=== PATIENT | female | born 1980 | race Caucasian/White ===

== ENCOUNTER 2016-09-26 15:46 | Inpatient (IN) | payer BC ==
[~2016-09-26] VITALS: Ht 162.6 cm; Wt 66.5 kg
[~2016-09-26 15:46] MED LIST: IBUP-1542 PO
[2016-09-26] MEDS ORDERED: ONDANSETRON (ODT) 4 MG TAB ODT STA (16:56)
[2016-09-26] MEDS ORDERED: morphine 10 MG INJ IM ONE (17:00)
[2016-09-26] MEDS ORDERED: ALPRAZOLAM 0.25 MG TAB PO ONE ×2 (17:00→19:00)
[2016-09-26 19:27] LABS: URINE BLOOD (Dip) POC 2+ (NEGATIVE)
--- NOTE | 2016-09-26 20:14 | RADRPT ---
PROCEDURE: CT scan of the abdomen and pelvis without IV contrast. CLINICAL INDICATION: History of colon cancer with ongoing abdominal pain and diarrhea. TECHNIQUE: Thin section axial, coronal and sagittal images were performed through the abdomen and pelvis without contrast. Radiation Dose: CTDI: 7.9 and DLP: 410 One or more of the following dose reduction techniques were used: - Automated exposure control. - Adjustment of the mA and/or kV according to patient size. Use of iterative reconstruction technique. COMPARISON: Chest x-ray 05/04/2016 06:18 a.m. FINDINGS: Soft tissues: There is a tubular-shaped foreign body fragment ventral to the left rectus abdominus muscle. This may be a drainage tube fragment. Lungs and pleural spaces: The pulmonary vasculature and lung green are normal. No pleural effusion is identified. Heart: Normal. No pericardial effusion is present. The liver, common bile duct and gallbladder: No hepatic mass is identified. There are small gallsto diego in the gallbladder. No gallbladder wall thickening or pericholecystic fluid is identified. Gastrointestinal: There has been prior gastric bypass surgery. There is some thickening of the smal l bowel loops in the left upper abdomen measuring up to 7 mm in thickness. Findings are consistent with a acute small bowel enteritis. There are diverticula in the proximal sigmoid colon. There is a long segment narrowing with mucosal thickening of the distal transverse colon. There is a step-off or shouldering in the mid transverse colon in association with this area. A diverticulum is suspect ed in the distal transverse colon. The cecum and ascending colon are incompletely distended. Pancreas: Normal. Kidneys, bladder and adrenal glands : A 4 mm nephrolith is identified in the lateral left mid renal pelvis. Spleen: There are clips medial to the upper portion of the spleen. The spleen is normal in size. Lymph nodes: No enlarged periportal, retroperitoneal or mesenteric lymph nodes are identified. Ther e are small mesenteric lymph nodes to the left of the mid abdominal aorta. There are small periaort ic lymph nodes adjacent to the upper abdominal aorta. Reproductive system and pelvis : There are cysts and follicles seen in the right ovary. The right and left ovaries are normal in size. The uterus is retroverted and has a lobulated contour suggesti ng underlying poorly visualized leiomyomata. No free fluid is identified in the pelvis. Bony elements: There are degenerative osteophytes in the thoracic and lumbar spine. No acute bony f racture or bone metastasis is identified. Vasculature: Normal. IMPRESSION: 1. Cholelithiasis. 2. There is a 2 cm by 5.5 mm tubular shape foreign body fragment ventral to the medial aspect of th e left rectus abdominus muscle. There is a 2 mm calcification medial to the foreign body fragment. 3. Status post gastric bypass surgery. 4. Mucosal thickening of small bowel loops in the left upper abdomen suspicious for an acute small bowel enteritis. 5. There are small mesenteric lymph nodes. 6. 4 mm nonobstructive nephrolith midpole left kidney. 7. There is a long segment narrowing of the distal transverse colon with a rather abrupt caliber ch stephanie noted with the more proximal mid transverse colon. Although this may be the result of incomple te distension, infiltrative neoplasm is not entirely excluded. A barium enema or colonoscopy is rec ommended for evaluating this area. 8. Diverticula in the proximal sigmoid colon. Diverticulum in the distal transverse colon. 9. Leiomyomata of the retroverted uterus. Large follicle or cyst in the right ovary which would be better evaluated with pelvic sonography if clinically indicated. RPTAT:AAJJ Physician Seymour Date Time Electronically viewed and signed by Physician Seymour on 09/26/2016 20:14 DEIDRA/
[2016-09-26] MEDS ORDERED: morphine 4 MG/ML VIAL IV STA (21:18)
[2016-09-26] MEDS ORDERED: SOD CHLORIDE 0.9% 500 ML IV STA (21:18)
--- NOTE | 2016-09-26 21:45 | ERA ---
ER Documentation Chief Complaint Date/Time DATE: 09/26/16 TIME: 21:37 Chief Complaint diarrhea, nausea, abd pain HPI This 35-year-old female presents with 3 days of diarrhea and nausea and mid abdominal pain that is crampy and somewhat migratory. She denies fevers and chills. She also states that she feels anxious. One the reasons for anxiety is that she has a cousin and aunt who had colon cancer at a young age. She had initially set up follow-up for a colonoscopy but had not followed through. She states that her relatives had the same symptoms of diarrhea. She states that her diarrhea has been gone for 2 weeks but for a long time she has had this chronic diarrhea. ROS All systems reviewed and are negative except as per history of present illness. Medications Home Meds Active Scripts Ibuprofen* (Motrin*) 600 Mg Tab, 600 MG PO TID for PAIN, #30 TAB Prov:ALCIRA BLEVINS MD 06/19/15 Allergies Allergies: Coded Allergies: No Known Drug Allergy (Verified Allergy, Unknown, 12/19/07) PMhx/Soc History of Surgery: Yes ("sleeve surgery" in lungs) Anesthesia Reaction: No Hx Neurological Disorder: No Hx Respiratory Disorders: Yes ("water in lungs") Hx Cardiac Disorders: No Hx Psychiatric Problems: No Hx Miscellaneous Medical Probl: No Hx Alcohol Use: Yes (occasionally) Hx Substance Use: No Hx Tobacco Use: No Smoking Status: Current some day smoker Physical Exam Vitals Vital Signs Date Time Temp Pulse Resp B/P Pulse Ox O2 Delivery O2 Flow Rate FiO2 09/26/16 15:47 98.5 82 20 117/93 100 Physical Exam Const: [] Mild distress Head: Atraumatic Eyes: Normal Conjunctiva ENT: Normal External Ears, Nose and Mouth. Neck: Full range of motion..~ No meningismus. Resp: Clear to auscultation bilaterally Cardio: Regular rate and rhythm, no murmurs Abd: Soft, mild periumbilical tenderness without guarding or rebound, non distended. Normal bowel sounds Skin: No petechiae or rashes Back: No midline or flank tenderness Ext: No cyanosis, or edema Neur: Awake and alert and oriented 3, no focal deficits Psych: Normal Mood and Affect Results 24 hrs Laboratory Tests Test 09/26/16 19:31 Bedside Urine pH (LAB) 5.5 Bedside Urine Protein (LAB) 2+ Bedside Urine Glucose (UA) Negative Bedside Urine Ketones (LAB) 2+ Bedside Urine Blood 2+ Bedside Urine Nitrite (LAB) Negative Bedside Urine Leukocyte Esterase (L 1+ Current Medications Medications (Trade) Dose Ordered Sig/Osiris Route PRN Reason Start Time Stop Time Status Last Admin Dose Admin Morphine Sulfate (morphine) 4 mg ONCE ONCE IM 09/26/16 17:00 09/26/16 17:01 DC 09/26/16 17:04 Ondansetron HCl (Zofran Odt) 4 mg ONCE STAT ODT 09/26/16 16:56 09/26/16 16:57 DC 09/26/16 17:04 Alprazolam (Xanax) 0.25 mg ONCE ONCE PO 09/26/16 17:00 09/26/16 17:01 DC 09/26/16 17:04 Alprazolam 0.5 mg 0.5 mg ONCE ONCE PO 09/26/16 19:00 09/26/16 19:01 DC 09/26/16 19:07 Sodium Chloride (NS) 500 ml @ 500 mls/hr Q1H STAT IV 09/26/16 21:18 09/26/16 22:17 Morphine Sulfate (morphine) 4 mg ONCE STAT IV 09/26/16 21:18 09/26/16 21:19 DC Procedures/MDM Abdominal pain and diarrhea in a patient with the foreign body in her abdominal wall musculature as well as gallstones and possible obstructive lesion in the colon. Because of patient's family history with secondary relatives with colon cancer at young age believe at this point it is prudent to admit her for further workup. She does continue to have abdominal pain as well. Initially abdominal pain was treated with a injection of morphine as well as Zofran ODT. This did resolve her nausea. She is also given 0.25 mg of Xanax. She stated that she still felt very antsy. She was given additional 0.5 mg of Xanax. Fortunately she is very adamant about obtaining a CAT scan. This demonstrated the foreign body. I have also ordered labs. She is going to be admitted and will receive inpatient workup of this possible very serious condition. The oncoming doctor will be following of her laboratories. CT abdomen pelvis interpretation: 0.5 x 2 cm foreign body in the lateral rectus abdominal muscle., Gallstones, possible obstructive lesion of the colon in the distal transverse colon. Uterine fibroids. 4 mm left kidney stone. No free air. No fractures Departure Diagnosis: Primary Impression: Acute abdominal pain Additional Impressions: Cholelithiasis Foreign body Colonic mass Nausea Anxiety Uterine fibroid Enteritis Condition: Stable JOHNNY FOLEY DO Sep 26, 2016 21:45
[2016-09-26] MEDS ORDERED: LORAZEPAM 2 MG INJ IV ONE (22:00)
[2016-09-26 22:16] LABS: ADD SCAN DIFF NO
[2016-09-26 22:21] LABS: BASOPHIL # 0.1 10^3/ul (0.0-0.1); BASOPHILS % 0.5 % (0.0-2.0); EOSINOPHILS # 0.1 10^3/ul (0.0-0.5); EOSINOPHILS % 0.5 % (0.0-7.0); HEMOGLOBIN 13.5 g/dl (12.0-16.0); LYMPHOCYTES % 32.2 % (15.0-51.0); MEAN CORPUSCULAR HEMOGLOBIN 30.5 pg (29.0-33.0); MEAN CORPUSCULAR HGB CONC 33.8 g/dl (32.0-37.0); MEAN CORPUSCULAR VOLUME 90.3 fl (82.0-101.0); MEAN PLATELET VOLUME 10.5 fl (7.4-10.4); MONOCYTE # 0.8 10^3/ul (0.3-0.9); NEUTROPHIL # 5.4 10^3/ul (1.6-7.5); NEUTROPHILS % 57.8 % (39.0-77.0); PLATELET COUNT 213 10^3/UL (140-415); RED BLOOD COUNT 4.43 10^6/ul (4.20-5.40); RED CELL DISTRIBUTION WIDTH 13.4 % (11.5-14.5); WHITE BLOOD COUNT 9.4 10^3/ul (4.8-10.8)
[2016-09-26 22:37] LABS: ALBUMIN/GLOBULIN RATIO 1.66; BILIRUBIN,INDIRECT 0.4 mg/dl (0-1.1); BILIRUBIN,TOTAL 0.4 mg/dl (0.2-1.3); CALCIUM 9.6 mg/dl (8.4-10.2); CREATININE 0.67 mg/dl (0.44-1.00); POTASSIUM 3.8 mmol/L (3.5-5.1)
[2016-09-26 22:38] LABS: ADD UMIC YES; UR ASCORBIC ACID NEGATIVE (NEGATIVE); UR BACTERIA FEW /HPF (NONE SEEN); UR BILIRUBIN (Dip) NEGATIVE (NEGATIVE); UR BLOOD (Dip) 2+ mg/dL (NEGATIVE); UR CLARITY TURBID (CLEAR); UR COLOR AMBER (YELLOW); UR GLUCOSE (Dip) NEGATIVE (NEGATIVE); UR KETONES (Dip) 2+ mg/dL (NEGATIVE); UR LEUKOCYTE ESTERASE (Dip) 3+ Leu/ul (NEGATIVE); UR MUCUS MANY /HPF (NONE SEEN); UR NITRITE (Dip) NEGATIVE (NEGATIVE); UR RBC 20 /HPF (0-5); UR SPECIFIC GRAVITY (Dip) 1.028 (1.003-1.030); UR SQUAMOUS EPITHELIAL CELL MANY /HPF (FEW); UR TOTAL PROTEIN (Dip) 2+ mg/dl (NEGATIVE); UR UROBILINOGEN (Dip) NEGATIVE (NEGATIVE)
[2016-09-26] MEDS ORDERED: SOD CHLORIDE 0.9% 1,000 ML IV SCH (23:07)
[2016-09-26] MEDS ORDERED: CEFTRIAXONE 1 GM/50 ML (PMX) 50 ML IVPB ONE (23:30)
[2016-09-26] MEDS ORDERED: ONDANSETRON 4 MG INJ IV PRN (23:30)
[2016-09-26] MEDS ORDERED: ACETAMINOPHEN 325 MG TAB PO PRN (23:30)
[2016-09-26] MEDS: SOD CHLORIDE 0.9% 1,000 ML IV SCH (23:56)
[2016-09-27] VITALS (13 sets, daily range): BP systolic 96–138; BP diastolic 50–83; PULSE 50–103; RESP 16–19; Ht 162.6 cm; Wt 66.5 kg
[2016-09-27] MEDS ORDERED: NACL 0.9% 3 ML SYG IV SCH
[2016-09-27] MEDS ORDERED: ACETAMINOPHEN 325 MG TAB PO PRN
[2016-09-27] MEDS ORDERED: morphine 4 MG/ML VIAL IV ONE (01:39)
[2016-09-27] MEDS: SOD CHLORIDE 0.9% 1,000 ML IV SCH ×3 (01:55→18:38)
[2016-09-27] MEDS ORDERED: DIPHENHYDRAMINE 25 MG CAP PO ONE (02:00)
[2016-09-27] MEDS ORDERED: LORAZEPAM 2 MG INJ IV ONE (02:00)
--- NOTE | 2016-09-27 02:52 | HP ---
Date/Time of Note Date/Time of Note DATE: 09/27/16 TIME: 02:50 Assessment/Plan VTE Prophylaxis VTE Prophylaxis Intervention: LMWH Assessment/Plan Chief Complaint/Hosp Course This is a 35 year female being admitted to the [facility] floor for: #1 abdominal pain: Small bowel enteritis versus possible neoplasm versus foreign body. Patient CAT scan shows a 2 cm by 5.5 mm tubular shape foreign body fragment ventral to the medial aspect of the left rectus abdominus muscle. There is a 2 mm calcification medial to the foreign body fragment.There is a long segment narrowing of the distal transverse colon with a rather abrupt caliber change noted with the more proximal mid transverse colon. Although this may be the result of incomplete distension, infiltrative neoplasm is not entirely excluded. Mucosal thickening of small bowel loops in the left upper abdomen suspicious for an acute small bowel enteritis. At the current time we will keep the patient n.p.o. provide her IV fluid hydration. Will provide her pain medications. Will consult general surgery as well as GI for further evaluation. As there were also mesenteric lymph nodes on the CT scan there is a possibility that this could be neoplastic in nature. Will await further evaluation from GI and general surgery before proceeding for any other testing and consultants such as he hematology. #2 Nephrolithiasis: 4 mm nonobstructive nephrolith midpole left kidney. Continue IV fluid hydration at this time will start patient on Flomax. #3 Urinary tract infection: The current time we will treat the patient with IV ceftriaxone. Will await urine culture. #4 vaginal itching: This could be possibly related to patient's urinary tract infection however patient reports her itching is extensive. At the current time will provide her Diflucan as well as Monistat cream. If her symptoms persist we will consider OB consultation for a pelvic examination. Patient also like to be tested for STDs will send out HIV GC chlamydia and RPR. #5 leiomyomata of the retroverted uterus. Large follicle or cyst in the right ovary was recommended to order a pelvic ultrasound for further evaluation. #6 DVT and GI prophylaxis: Lovenox, Protonix Further treatment strategy will be implemented as per the clinical course Problems: HPI/ROS Admit Date/Time Admit Date/Time Sep 26, 2016 at 23:08 Hx of Present Illness chief complaint: chronic diarrhea, abdominal pain This 35-year-old female presents with 3 days of diarrhea and nausea and mid abdominal pain that is crampy and somewhat migratory. She denies fevers and chills. She also states that she feels anxious. One the reasons for anxiety is that she has a cousin and aunt who had colon cancer at a young age. She had initially set up follow-up for a colonoscopy but had not followed through. She states that her relatives had the same symptoms of diarrhea. She states that she had diarrhea for approximately 3 days and it did stop for some time in between but she has been dealing with a chronically for the last 4-6 months. Denies any bright red blood per rectum. allergy: hydrocodone meds: see MAY ROS Const: As per HPI Eyes : No pain discharge or redness or change in visual acuity ENT: No pain, sore throat, congestion, congestion, dysphagia or discharge Respiratory: No shortness of breath, cough, sputum, wheezing, or pleuritic pain Cardiovascular: No chest pain, palpitation, PND, or edema GI : As per HPI Genitourinary: As per HPI Musculoskeletal: No joint pain, back pain, neck pain, restricted range of motion in neck or joints Skin: No rash, bruising or hives Neuro: No headache, dizziness, syncope, seizure, focal weakness Endocrine: No polyuria, polydipsia, temperature intolerance Psych: No hallucination, depression, anxiety or suicidal ideation PMH/Family/Social Past Medical History chronic diaarhea Past Surgical History Gastric sleeve, left foot bunion repair, right hammer toe repair Family History Significant Family History: cancer (Colon cancer in her aunt and cousin) Social History Alcohol Use: occasionally (1/2 per day x 10 years) Smoking Status: Current some day smoker (5 cigarettes a day 10 years) Drug Use: none Exam/Review of Systems Vital Signs Vitals Vital Signs Date Time Temp Pulse Resp B/P Pulse Ox O2 Delivery O2 Flow Rate FiO2 09/27/16 01:50 62 98 09/27/16 00:45 98.0 18 138/62 Room Air Exam Exam General: Does appear very anxious and worried egarding her clinical condition. HEENT: Atraumatic, normocephalic. The pupils are equal, round and reactive. Extraocular motor are intact Neck: Supple with full range of motion. No rigidity or meningismus Chest: Nontender Lungs: Clear to auscultation bilaterally no crackles rales or wheezing Heart: Normal S1-S2, Regular rhythm and rate. No murmur, S3, or S4 Abdomen: Soft, mild tenderness to palpation over the epigastric and down to the umbilical region, normal bowel sounds, no palpable masses appreciated. Extremities: Normal to inspection, no edema no cyanosis Neurologic: Normal mental status, speech normal, cranial nerves II through XII are intact, motor and sensory are intact, no focal weakness patient is well- developed well-nourished she Psych: No suicidal ideation no hallucinations. Anxious and worried about her medical condition. Additional Comments PROCEDURE: CT scan of the abdomen and pelvis without IV contrast. CLINICAL INDICATION: History of colon cancer with ongoing abdominal pain and diarrhea. TECHNIQUE: Thin section axial, coronal and sagittal images were performed through the abdomen and pelvis without contrast. Radiation Dose: CTDI: 7.9 and DLP: 410 One or more of the following dose reduction techniques were used: - Automated exposure control. - Adjustment of the mA and/or kV according to patient size. Use of iterative reconstruction technique. COMPARISON: Chest x-ray 05/04/2016 06:18 a.m. FINDINGS: Soft tissues: There is a tubular-shaped foreign body fragment ventral to the left rectus abdominus muscle. This may be a drainage tube fragment. Lungs and pleural spaces: The pulmonary vasculature and lung green are normal. No pleural effusion is identified. Heart: Normal. No pericardial effusion is present. The liver, common bile duct and gallbladder: No hepatic mass is identified. There are small gallstones in the gallbladder. No gallbladder wall thickening or pericholecystic fluid is identified. Gastrointestinal: There has been prior gastric bypass surgery. There is some thickening of the small bowel loops in the left upper abdomen measuring up to 7 mm in thickness. Findings are consistent with a acute small bowel enteritis. There are diverticula in the proximal sigmoid colon. There is a long segment narrowing with mucosal thickening of the distal transverse colon. There is a step-off or shouldering in the mid transverse colon in association with this area. A diverticulum is suspected in the distal transverse colon. The cecum and ascending colon are incompletely distended. Pancreas: Normal. Kidneys, bladder and adrenal glands : A 4 mm nephrolith is identified in the lateral left mid renal pelvis. Spleen: There are clips medial to the upper portion of the spleen. The spleen is normal in size. Lymph nodes: No enlarged periportal, retroperitoneal or mesenteric lymph nodes are identified. There are small mesenteric lymph nodes to the left of the mid abdominal aorta. There are small periaortic lymph nodes adjacent to the upper abdominal aorta. Reproductive system and pelvis : There are cysts and follicles seen in the right ovary. The right and left ovaries are normal in size. The uterus is retroverted and has a lobulated contour suggesting underlying poorly visualized leiomyomata. No free fluid is identified in the pelvis. Bony elements: There are degenerative osteophytes in the thoracic and lumbar spine. No acute bony fracture or bone metastasis is identified. Vasculature: Normal. IMPRESSION: 1. Cholelithiasis. 2. There is a 2 cm by 5.5 mm tubular shape foreign body fragment ventral to the medial aspect of the left rectus abdominus muscle. There is a 2 mm calcification medial to the foreign body fragment. 3. Status post gastric bypass surgery. 4. Mucosal thickening of small bowel loops in the left upper abdomen suspicious for an acute small bowel enteritis. 5. There are small mesenteric lymph nodes. 6. 4 mm nonobstructive nephrolith midpole left kidney. 7. There is a long segment narrowing of the distal transverse colon with a rather abrupt caliber change noted with the more proximal mid transverse colon. Although this may be the result of incomplete distension, infiltrative neoplasm is not entirely excluded. A barium enema or colonoscopy is recommended for evaluating this area. 8. Diverticula in the proximal sigmoid colon. Diverticulum in the distal transverse colon. 9. Leiomyomata of the retroverted uterus. Large follicle or cyst in the right ovary which would be better evaluated with pelvic sonography if clinically indicated. RPTAT:AAJJ Physician Seymour Date Time Electronically viewed and signed by Physician Seymour on 09/26/2016 20:14 Labs Result Diagram: 09/26/16 2200 09/26/16 2200 Medications Medications Current Medications Sodium Chloride 1,000 ml @ 80 mls/hr [id number] IV ; Start 09/26/16 at 23:07; Stop 09/27/16 at 11:36 Sodium Chloride (NS) 1,000 ml @ 80 mls/hr [id number] IV Last administered on 09/27t 01:55; Admin Dose 80 MLS/HR; Start 09/26/16 at 23:56 Ondansetron HCl (Zofran Inj) 4 mg Q6H PRN IV NAUSEA AND/OR VOMITING; Start at 00:00 Acetaminophen (Tylenol Tab) 650 mg Q6H PRN PO PAIN LEVEL 1-3 OR FEVER; Start at 00:00 Enoxaparin Sodium (Lovenox) 40 mg DAILY SC ; Start 09/27/16 at 09:00 Miconazole (Monistat-3) 1 supp HS VAG ; Start 09/27/16 at 03:00; Status UNV Fluconazole (Diflucan) 150 mg ONCE ONCE PO ; Start 09/27/16 at 03:00; Stop at 03:01 NADEEN ENGEL Sep 27, 2016 02:52
[2016-09-27] MEDS ORDERED: MICONAZOLE 200 MG VAG SUPP VAG SCH (03:00)
[2016-09-27] MEDS ORDERED: FLUCONAZOLE 150 MG TAB PO ONE (03:00)
[2016-09-27] MEDS: MICONAZOLE VAG SCH ×2 (03:13→22:28)
[2016-09-27 05:35] LABS: ADD SCAN DIFF NO
[2016-09-27 05:39] LABS: BASOPHILS % 0.3 % (0.0-2.0); EOSINOPHILS # 0.1 10^3/ul (0.0-0.5); HEMATOCRIT 36.5 % (37.0-47.0); HEMOGLOBIN 11.8 g/dl (12.0-16.0); LYMPHOCYTES # 2.7 10^3/ul (0.8-2.9); LYMPHOCYTES % 37.9 % (15.0-51.0); MEAN CORPUSCULAR HEMOGLOBIN 29.4 pg (29.0-33.0); MEAN CORPUSCULAR HGB CONC 32.3 g/dl (32.0-37.0); MEAN PLATELET VOLUME 9.8 fl (7.4-10.4); MONOCYTE # 0.6 10^3/ul (0.3-0.9); MONOCYTES % 8.6 % (0.0-11.0); NEUTROPHIL # 3.7 10^3/ul (1.6-7.5); NEUTROPHILS % 51.4 % (39.0-77.0); PLATELET COUNT 177 10^3/UL (140-415); RED BLOOD COUNT 4.01 10^6/ul (4.20-5.40); RED CELL DISTRIBUTION WIDTH 13.5 % (11.5-14.5); WHITE BLOOD COUNT 7.2 10^3/ul (4.8-10.8)
[2016-09-27 06:11] LABS: ALBUMIN 4.3 g/dl (3.3-4.9); ALBUMIN/GLOBULIN RATIO 1.95; BILIRUBIN,INDIRECT 0.3 mg/dl (0-1.1); BILIRUBIN,TOTAL 0.3 mg/dl (0.2-1.3); CALCIUM 8.8 mg/dl (8.4-10.2); CREATININE 0.66 mg/dl (0.44-1.00); MAGNESIUM 1.8 mg/dl (1.7-2.5); POTASSIUM 3.5 mmol/L (3.5-5.1); TOTAL PROTEIN 6.5 g/dl (6.1-8.1)
[2016-09-27 07:13] LABS: CARCINOEMBRYONIC ANTIGEN 3.4 ng/ml (0.0-5.0)
[2016-09-27 07:18] LABS: THYROID STIMULATING HORMONE 3.64 MIU/L (0.465-4.680)
[2016-09-27 07:31] LABS: CANCER ANTIGEN 125 7.9 U/ml (0.0-35.0)
[2016-09-27] MEDS ORDERED: POLYETHYLENE GLYCOL 3350 119 GM POWDER PO ONE ×2 (08:30)
[2016-09-27] MEDS ORDERED: BISACODYL (EC) 5 MG TAB PO ONE ×2 (08:30)
[2016-09-27] MEDS ORDERED: MAGNESIUM CITRATE 300 ML BTL PO ONE (08:30)
[2016-09-27] MEDS: ENOXAPARIN 40 MG/0.4 ML SYG SC SCH (08:45)
[2016-09-27 10:15] LABS: INR 1.12; PROTIME 14.4 Sec (12.2-14.2); PT RATIO 1.1
--- NOTE | 2016-09-27 11:12 | CONS ---
Date/Time of Note Date/Time of Note DATE: 09/27/16 TIME: 10:59 Assessment/Plan Assessment/Plan Chief Complaint/Hosp Course Impression: 1 abdominal pain: Small bowel enteritis versus possible neoplasm versus foreign body. U/A showed UTI which can also contribute to abdominal pain. 2. CAT scan shows Long segment narrowing of the distal transverse colon with a rather abrupt caliber change noted with the more proximal mid transverse colon. 3. Nephrolithiasis: can also contribute to her abdominal pain 4. diarrhea 5. family h/o colon cancer Recommendations: 1. proceed with EGD and colonoscopy to evaluate her enteritis and colonic thickening seen on CT 2. stool studies to r/o infectious etiology of her enteritis and colitis 3. further management per results of endoscopic procedures Problems: Consultation Date/Type/Reason Admit Date/Time Sep 26, 2016 at 23:08 Date of Consultation: Sep 27, 2016 Type of Consultation: GI Reason for Consultation diarrhea and thickened bowel loops Hx of Present Illness 35-year-old female who is admitted for abdominal pain, diarrhea, and CT scan showing thickened bowel. Her history is that she has 3 days of diarrhea and nausea and mid abdominal pain that is crampy and somewhat migratory. No fevers and chills. + anxious due to she found out that her cousin and aunt who had colon cancer at a young age. She had initially set up follow-up for a colonoscopy but had not followed through. No melena, coffee ground emesis, wt loss, or bright red blood per rectum. all point ros administered, pertinent positives and negatives in HPI otherwise negative. Past Medical History Medical History: colitis Past Surgical History Gastric sleeve, left foot bunion repair, right hammer toe repair Family History Significant Family History: cancer (colon cancer in aunt and cousin) Social History Alcohol Use: occasionally (1/2 per day x 10 years) Smoking Status: Current some day smoker (5 cigarettes a day 10 years) Drug Use: none Exam/Review of Systems Vital Signs Vitals Vital Signs Date Time Temp Pulse Resp B/P Pulse Ox O2 Delivery O2 Flow Rate FiO2 09/27/16 07:46 97.6 55 18 99/54 98 09/27/16 02:30 Room Air Intake and Output 09/26/16 09/26/16 09/27/16 15:00 23:00 07:00 Intake Total 330 ml Output Total 300 ml Balance 30 ml Exam Constitutional: alert, oriented, well developed Psych: anxiety Head: atraumatic, normocephalic Eyes: EOMI, nl conjunctiva, nl lids, nl sclera ENMT: mucosa pink and moist, nl external ears & nose, nl lips & teeth, nl nasal mucosa & septum Neck: non-tender, supple Respiratory: clear to auscultation, normal air movement Cardiovascular: nl pulses, regular rate and rhythm Gastrointestinal: bowel sounds, non-tender, soft Musculoskeletal: nl extremities to inspection, nl gait and stance Neurological: nl mental status, nl speech, nl strength Results Result Diagram: 09/27/1651709/27/1618 Results 24 hrs Laboratory Tests Test 09/26/16 19:31 09/26/16 20:00 09/26/16 22:00 09/27/16 05:18 Bedside Urine pH (LAB) 5.5 Bedside Urine Protein (LAB) 2+ H Bedside Urine Glucose (UA) Negative Bedside Urine Ketones (LAB) 2+ H Bedside Urine Blood 2+ H Bedside Urine Nitrite (LAB) Negative Bedside Urine Leukocyte Esterase (L 1+ H Urine Color ZAK Urine Clarity TURBID A Urine pH 5.0 Urine Specific [place] 1.028 Urine Ketones 2+ H Urine Nitrite NEGATIVE Urine Bilirubin NEGATIVE Urine Urobilinogen NEGATIVE Urine Leukocyte Esterase 3+ H Urine Microscopic RBC 20 H Urine Microscopic WBC 56 H Urine Squamous Epithelial Cells MANY A Urine Bacteria FEW A Urine Mucus MANY A Urine Hemoglobin 2+ H Urine Glucose NEGATIVE Urine Total Protein 2+ H White Blood Count 9.4 7.2 # Red Blood Count 4.43 4.01 L Hemoglobin 13.5 11.8 L Hematocrit 40.0 36.5 L Mean Corpuscular Volume 90.3 91.0 Mean Corpuscular Hemoglobin 30.5 29.4 Mean Corpuscular Hemoglobin Concent 33.8 32.3 Red Cell Distribution Width 13.4 13.5 Platelet Count 213 177 Mean Platelet Volume 10.5 H 9.8 Neutrophils % 57.8 51.4 Lymphocytes % 32.2 37.9 Monocytes % 8.0 8.6 Eosinophils % 0.5 1.0 Basophils % 0.5 0.3 Nucleated Red Blood Cells % 0.0 0.0 Neutrophils # 5.4 3.7 Lymphocytes # 3.0 H 2.7 Monocytes # 0.8 0.6 Eosinophils # 0.1 0.1 Basophils # 0.1 0.0 Nucleated Red Blood Cells # 0.0 0.0 Sodium Level 139 137 Potassium Level 3.8 3.5 Chloride Level 102 104 Carbon Dioxide Level 25 27 Anion Gap 16 10 # Blood Urea Nitrogen 7 6 L Creatinine 0.67 0.66 Glucose Level 117 80 Calcium Level 9.6 8.8 Total Bilirubin 0.4 0.3 Direct Bilirubin 0.00 0.00 Indirect Bilirubin 0.4 0.3 Aspartate Amino Transf (AST/SGOT) 25 19 Alanine Aminotransferase (ALT/SGPT) 25 25 Alkaline Phosphatase 67 50 Total Protein 8.0 6.5 # Albumin 5.0 H 4.3 Globulin 3.00 2.20 Albumin/Globulin Ratio 1.66 1.95 Lipase 54 Magnesium Level 1.8 Carcinoembryonic Antigen 3.4 CA 125 Antigen 7.9 Thyroid Stimulating Hormone (TSH) 3.640 Test 09/27/16 09:12 Prothrombin Time 14.4 H Prothrombin Time Ratio 1.1 INR International Normalized Ratio 1.12 Medications Medications Current Medications Sodium Chloride 1,000 ml @ 80 mls/hr [id number] IV ; Start 09/26/16 at 23:07; Stop 09/27/16 at 11:36 Sodium Chloride (NS) 1,000 ml @ 80 mls/hr [id number] IV Last administered on 09/27 01:55; Admin Dose 80 MLS/HR; Start 09/26/16 at 23:56 Ondansetron HCl (Zofran Inj) 4 mg Q6H PRN IV NAUSEA AND/OR VOMITING; Start at 00:00 Acetaminophen (Tylenol Tab) 650 mg Q6H PRN PO PAIN LEVEL 1-3 OR FEVER; Start at 00:00 Enoxaparin Sodium (Lovenox) 40 mg DAILY SC Last administered on 09/27/16 08:45 ; Admin Dose 40 MG; Start 09/27/16 at 09:00 Non-Formulary Medication 1 ea HS VAG Last administered on 09/27/16 03:13; Admin Dose 1 EA; Start 09/27/16 at 03:00; Stop 09/28/16 at 21:01 Morphine Sulfate (morphine) 2 mg Q4H PRN IV PAIN; Start 09/27/16 at 06:30 Tamsulosin HCl 0.4 mg 0.4 mg HS PO ; Start 09/27/16 at 21:00 Ceftriaxone Sodium (Rocephin) 50 ml @ 100 mls/hr Q24H IVPB ; Start 09/27/16 at 23:00; Stop 09/30/16 at 08:00 ALCIRA QUIÑONES MD Sep 27, 2016 11:12
--- NOTE | 2016-09-27 11:50 | RADRPT ---
PROCEDURE: US Pelvis. CLINICAL INDICATION: Pelvic pain. TECHNIQUE: The pelvis was evaluated with transabdominal and transvaginal sonography in the axial a nd sagittal planes. COMPARISON: CT scan of the abdomen and pelvis dated 09/26/2016 which demonstrated a large follicle or cyst in the right ovary. FINDINGS: Uterus: 7.4 x 3.9 x 5.5 cm. Endometrium: 10.6 mm. Right ovary: 3.4 x 1.9 x 2.5 cm. Left ovary: 3.4 x 1.7 x 1.9 cm. Uterine masses: Small Nabothian cysts are present in the cervix. There is no other uterine mass. Ovarian masses: There is a 2.0 x 1.5 cm benign-appearing right ovarian cyst. There are no internal echoes or septations. Color Doppler and pulsed Doppler sonography demonstrate normal flow to the ova neeta. Other pelvic masses: None. Free fluid: A small amount of physiologic free fluid is present in the cul-de-sac. IMPRESSION: 1. Small Nabothian cysts in the cervix. 2. Benign 2.0 x 1.5 cm right ovarian cyst. No further evaluation required. 3. Small amount of physiologic free fluid in the cul-de-sac. 4. Otherwise unremarkable study. RPTAT: QQ .Tony Montanez MD, MD Date Time Electronically viewed and signed by .Tony Montanez MD, on 09/27/2016 11:50 .R/
[2016-09-27] MEDS ORDERED: METOCLOPRAMIDE 10 MG INJ IV ONE (13:30)
--- NOTE | 2016-09-27 14:25 | CONS ---
Date/Time of Note Date/Time of Note DATE: 09/27/16 TIME: 13:52 Assessment/Plan Assessment/Plan Chief Complaint/Hosp Course 1. Abdominal pain: small bowel enteritis vs. possible neoplasm vs foreign body vs. lapband retained capsule vs. other: CT shows a 2 cm by 5.5 mm tubular shape foreign body fragment ventral to the medial aspect of the left rectus abdominus muscle. There is a 2 mm calcification medial to the foreign body fragment.There is a long segment narrowing of the distal transverse colon with a rather abrupt caliber change noted with the more proximal mid transverse colon. CEA and Ca 125 wnl; Reports weight loss however, she has gastric sleeve -will obtain records from lap band removal -may need biopsy -npo -IV fluid hydration -stool studies -GI consult to do colonoscopy/egd -Further management dependent on colonoscopy findings 2. Nephrolithiasis: nonobstructing; no pain -monitor for symptoms 3. Urinary tract infection: Cultures pending -started on abx -encourage frequent bladder emptying and good perineal care 4. Vaginal itching: likely 2/2 uti vs. fungal -started on monostat -as above 5.Anemia: likely dilutional given IVF vs. acute loss (no bleeding noted); -monitor -transfuse as needed Patient seen and examined in collaboration with Dr. Tanmay Louis Problems: Consultation Date/Type/Reason Admit Date/Time Sep 26, 2016 at 23:08 Date of Consultation: Sep 27, 2016 Type of Consultation: surgical Reason for Consultation foreign body in abdomen Hx of Present Illness Suzy Renee is a 35-year-old woman who presents with a 3 day history of diarrhea and nausea and mid abdominal pain that is sharp, crampy and almost constant. She denies fevers, chills, dizziness, fainting, palpitations, chest pain and cough. She also states that she feels very anxious and tearful. She is greatly worried about colon cancer as her cousin who was diagnosed with colon cancer had similar symptoms. She had previous similar episodes but they subsequently went away and she did not follow up with gastroenterology. Her symptoms have been present for 4-6 months for intervals of 3-4 day episodes. Stools are described as yellow and watery. Denies any bright red blood per rectum. CT scan was done in the ED that showed a 2 cm by 5.5 mm tubular shape foreign body fragment ventral to the medial aspect of the left rectus abdominus muscle, as well as a long segment narrowing of the distal transverse colon with a rather abrupt caliber change noted with the more proximal mid transverse colon. General surgery was asked to evaluate. Constitutional: diaphoresis, poor po, No chills, No febrile Eyes: No discharge, No pain ENT: No bleeding, No pain Respiratory: No cough, No shortness of breath, No wheezing Cardiovascular: No chest pain, No lightheadedness, No orthopenea, No palpitations Gastrointestinal: diarrhea (yellow), nausea, pain (sharp and crampy), No blood, No constipation, No vomiting Genitourinary: No dysuria, No flank pain Musculoskeletal: No back pain Skin: No bruising Neurologic: No confusion, No headache, No seizure, No syncope Endocrine: No polydypsia, No polyuria Psychological: anxiety Past Medical History Medical History: colitis Past Surgical History lap band (removed 2013) Gastric sleeve, left foot bunion repair, right hammer toe repair Family History Significant Family History: cancer (colon: aunt and cousin) Social History Alcohol Use: occasionally (1/2 per day x 10 years) Smoking Status: Current some day smoker (5 cigarettes a day 10 years) Drug Use: none Exam/Review of Systems Vital Signs Vitals Vital Signs Date Time Temp Pulse Resp B/P Pulse Ox O2 Delivery O2 Flow Rate FiO2 09/27/16 07:46 97.6 55 18 99/54 98 09/27/16 02:30 Room Air Intake and Output 09/26/16 09/26/16 09/27/16 15:00 23:00 07:00 Intake Total 330 ml Output Total 300 ml Balance 30 ml Exam Constitutional: alert, oriented, well developed Psych: anxiety (tearful) Head: atraumatic, normocephalic Eyes: nl lids, nl sclera ENMT: mucosa pink and moist Neck: non-tender, supple Respiratory: clear to auscultation, normal air movement Cardiovascular: nl pulses, regular rate and rhythm, No edema Gastrointestinal: bowel sounds, non-tender, soft, surgical scars, tender, No distended, No rebound or guarding Musculoskeletal: nl extremities to inspection, No swelling Extremities: normal pulses, No edema Neurological: nl mental status, nl speech, nl strength Skin: nl turgor Results Result Diagram: 6/29/17 0518 09/27/16 0518 Results 24 hrs Laboratory Tests Test 09/26/16 19:31 09/26/16 20:00 09/26/16 22:00 09/27/16 05:18 Bedside Urine pH (LAB) 5.5 Bedside Urine Protein (LAB) 2+ H Bedside Urine Glucose (UA) Negative Bedside Urine Ketones (LAB) 2+ H Bedside Urine Blood 2+ H Bedside Urine Nitrite (LAB) Negative Bedside Urine Leukocyte Esterase (L 1+ H Urine Color ZAK Urine Clarity TURBID A Urine pH 5.0 Urine Specific [place] 1.028 Urine Ketones 2+ H Urine Nitrite NEGATIVE Urine Bilirubin NEGATIVE Urine Urobilinogen NEGATIVE Urine Leukocyte Esterase 3+ H Urine Microscopic RBC 20 H Urine Microscopic WBC 56 H Urine Squamous Epithelial Cells MANY A Urine Bacteria FEW A Urine Mucus MANY A Urine Hemoglobin 2+ H Urine Glucose NEGATIVE Urine Total Protein 2+ H White Blood Count 9.4 7.2 # Red Blood Count 4.43 4.01 L Hemoglobin 13.5 11.8 L Hematocrit 40.0 36.5 L Mean Corpuscular Volume 90.3 91.0 Mean Corpuscular Hemoglobin 30.5 29.4 Mean Corpuscular Hemoglobin Concent 33.8 32.3 Red Cell Distribution Width 13.4 13.5 Platelet Count 213 177 Mean Platelet Volume 10.5 H 9.8 Neutrophils % 57.8 51.4 Lymphocytes % 32.2 37.9 Monocytes % 8.0 8.6 Eosinophils % 0.5 1.0 Basophils % 0.5 0.3 Nucleated Red Blood Cells % 0.0 0.0 Neutrophils # 5.4 3.7 Lymphocytes # 3.0 H 2.7 Monocytes # 0.8 0.6 Eosinophils # 0.1 0.1 Basophils # 0.1 0.0 Nucleated Red Blood Cells # 0.0 0.0 Sodium Level 139 137 Potassium Level 3.8 3.5 Chloride Level 102 104 Carbon Dioxide Level 25 27 Anion Gap 16 10 # Blood Urea Nitrogen 7 6 L Creatinine 0.67 0.66 Glucose Level 117 80 Calcium Level 9.6 8.8 Total Bilirubin 0.4 0.3 Direct Bilirubin 0.00 0.00 Indirect Bilirubin 0.4 0.3 Aspartate Amino Transf (AST/SGOT) 25 19 Alanine Aminotransferase (ALT/SGPT) 25 25 Alkaline Phosphatase 67 50 Total Protein 8.0 6.5 # Albumin 5.0 H 4.3 Globulin 3.00 2.20 Albumin/Globulin Ratio 1.66 1.95 Lipase 54 Magnesium Level 1.8 Carcinoembryonic Antigen 3.4 CA 125 Antigen 7.9 Thyroid Stimulating Hormone (TSH) 3.640 Test 09/27/16 09:12 Prothrombin Time 14.4 H Prothrombin Time Ratio 1.1 INR International Normalized Ratio 1.12 Medications Medications Current Medications Sodium Chloride (NS) 1,000 ml @ 80 mls/hr [id number] IV Last administered on 09/27 01:55; Admin Dose 80 MLS/HR; Start 09/26/16 at 23:56 Ondansetron HCl (Zofran Inj) 4 mg Q6H PRN IV NAUSEA AND/OR VOMITING; Start at 00:00 Acetaminophen (Tylenol Tab) 650 mg Q6H PRN PO PAIN LEVEL 1-3 OR FEVER; Start at 00:00 Enoxaparin Sodium (Lovenox) 40 mg DAILY SC Last administered on 09/27/16 08:45 ; Admin Dose 40 MG; Start 09/27/16 at 09:00 Non-Formulary Medication 1 ea HS VAG Last administered on 09/27/16 03:13; Admin Dose 1 EA; Start 09/27/16 at 03:00; Stop 09/28/16 at 21:01 Morphine Sulfate (morphine) 2 mg Q4H PRN IV PAIN; Start 09/27/16 at 06:30 Tamsulosin HCl 0.4 mg 0.4 mg HS PO ; Start 09/27/16 at 21:00 Ceftriaxone Sodium (Rocephin) 50 ml @ 100 mls/hr Q24H IVPB ; Start 09/27/16 at 23:00; Stop 09/30/16 at 08:00 DAMIAN GARRETT NP Sep 27, 2016 14:02
[2016-09-27] MEDS ORDERED: LORAZEPAM 0.5 MG TAB PO ONE (15:00)
[2016-09-27] MEDS ORDERED: PROPOFOL 40 ML ONE (17:11)
[2016-09-27] MEDS ORDERED: LIDOCAINE 2% (SDV) 5 ML INJ ONE (17:11)
--- NOTE | 2016-09-27 17:19 | OPR ---
Date/Time of Note Date/Time of Note DATE: 09/27/16 TIME: 17:18 Operative Report Free Text/Dictation Recommendation: 1. please see post-op diagnosis for impression and findings 2. f/u biopsy results Procedure Date: Sep 27, 2016 Preoperative Diagnosis diarrhea, anemia, CT showing enteritis and colitis Postoperative Diagnosis 1. edematous colon, particularly in transverse colon 2. gastropathy 3. pancreatic rest Operation Performed 1. EGD with biopsies 2. colonoscopy with biopsies Surgeon: ALCIRA QUIÑONES MD Anesthesia: MAC Estimated Blood Loss: minimal Specimens stomach and colon biopsies Complications: None Pt Condition Post Procedure: stable Disposition: PACU Indications diarrhea, anemia, CT showing enteritis and colitis Operative\Procedure Findings 1. gastropathy 2. pancreatic rest 3. edematous colon Procedure Description After informed consent and timeout, patient was sedated. After adequate sedation , I inserted an adult EGD scope from the mouth and advanced to 2nd portion of duodenum. Retroflexion was performed in the body of stomach revealing cardia and fundus. Random stomach biopsies were obtained to r/o H. pylori. Biopsies of the presumed pancreatic rest in antrum of stomach also obtained. I then withdraw the EGD scope to GEJ and Z line at 40 cm, no hiatal hernia. Air then suctioned out as I completely removed the scope. Patient then turned around for colonoscopy. Rectal exam normal with normal tone. I then inserted an colonoscope from the rectum and advanced to cecum reached at 80 cm as evidenced by appendiceal orifice and IC valve. The whole colon appeared edematous particularly at transverse colon. Random colonic biopsies were obtained to r/o microscopic colitis. Retroflexion performed in rectum showing small internal hemorrhoids. ALCIRA QUIÑONES MD Sep 27, 2016 17:19
--- NOTE | 2016-09-27 17:30 | PN ---
Date/Time of Note Date/Time of Note DATE: 09/27/16 TIME: 17:29 Assessment/Plan VTE Prophylaxis VTE Prophylaxis Intervention: SCD's Lines/Catheters IV Catheter Type (from Nrs): Peripheral IV Assessment/Plan Assessment/Plan 35 yo F admitted for abd pain and diarrhea. Imaging with ?enteritis. CScope today with obstructing colon mass. GI scope reports appreciated; EGD with barretts?. +colon mass. Biopsies done gen surg also on consult await path results Subjective 24 Hr Interval Summary Free Text/Dictation Pt not in his room at time of my attempted evaluation Exam/Review of Systems Vital Signs Vitals Vital Signs Date Time Temp Pulse Resp B/P Pulse Ox O2 Delivery O2 Flow Rate FiO2 09/27/16 16:39 54 18 109/55 98 Room Air 09/27/16 07:46 97.6 Intake and Output 09/26/16 09/26/16 09/27/16 15:00 23:00 07:00 Intake Total 330 ml Output Total 300 ml Balance 30 ml Exam Pt not in his room at time of my attempted evaluation Results Result Diagram: 09/27/16 0518 09/27/16 0518 Results 24 hrs Laboratory Tests Test 09/26/16 19:31 09/26/16 20:00 09/26/16 22:00 09/27/16 05:18 Bedside Urine pH (LAB) 5.5 Bedside Urine Protein (LAB) 2+ H Bedside Urine Glucose (UA) Negative Bedside Urine Ketones (LAB) 2+ H Bedside Urine Blood 2+ H Bedside Urine Nitrite (LAB) Negative Bedside Urine Leukocyte Esterase (L 1+ H Urine Color ZAK Urine Clarity TURBID A Urine pH 5.0 Urine Specific [place] 1.028 Urine Ketones 2+ H Urine Nitrite NEGATIVE Urine Bilirubin NEGATIVE Urine Urobilinogen NEGATIVE Urine Leukocyte Esterase 3+ H Urine Microscopic RBC 20 H Urine Microscopic WBC 56 H Urine Squamous Epithelial Cells MANY A Urine Bacteria FEW A Urine Mucus MANY A Urine Hemoglobin 2+ H Urine Glucose NEGATIVE Urine Total Protein 2+ H White Blood Count 9.4 7.2 # Red Blood Count 4.43 4.01 L Hemoglobin 13.5 11.8 L Hematocrit 40.0 36.5 L Mean Corpuscular Volume 90.3 91.0 Mean Corpuscular Hemoglobin 30.5 29.4 Mean Corpuscular Hemoglobin Concent 33.8 32.3 Red Cell Distribution Width 13.4 13.5 Platelet Count 213 177 Mean Platelet Volume 10.5 H 9.8 Neutrophils % 57.8 51.4 Lymphocytes % 32.2 37.9 Monocytes % 8.0 8.6 Eosinophils % 0.5 1.0 Basophils % 0.5 0.3 Nucleated Red Blood Cells % 0.0 0.0 Neutrophils # 5.4 3.7 Lymphocytes # 3.0 H 2.7 Monocytes # 0.8 0.6 Eosinophils # 0.1 0.1 Basophils # 0.1 0.0 Nucleated Red Blood Cells # 0.0 0.0 Sodium Level 139 137 Potassium Level 3.8 3.5 Chloride Level 102 104 Carbon Dioxide Level 25 27 Anion Gap 16 10 # Blood Urea Nitrogen 7 6 L Creatinine 0.67 0.66 Glucose Level 117 80 Calcium Level 9.6 8.8 Total Bilirubin 0.4 0.3 Direct Bilirubin 0.00 0.00 Indirect Bilirubin 0.4 0.3 Aspartate Amino Transf (AST/SGOT) 25 19 Alanine Aminotransferase (ALT/SGPT) 25 25 Alkaline Phosphatase 67 50 Total Protein 8.0 6.5 # Albumin 5.0 H 4.3 Globulin 3.00 2.20 Albumin/Globulin Ratio 1.66 1.95 Lipase 54 Magnesium Level 1.8 Carcinoembryonic Antigen 3.4 CA 125 Antigen 7.9 Thyroid Stimulating Hormone (TSH) 3.640 Test 09/27/16 09:12 Prothrombin Time 14.4 H Prothrombin Time Ratio 1.1 INR International Normalized Ratio 1.12 Medications Medications Current Medications Sodium Chloride (NS) 1,000 ml @ 80 mls/hr [id number] IV Last administered on 09/27 01:55; Admin Dose 80 MLS/HR; Start 09/26/16 at 23:56 Ondansetron HCl (Zofran Inj) 4 mg Q6H PRN IV NAUSEA AND/OR VOMITING; Start at 00:00 Acetaminophen (Tylenol Tab) 650 mg Q6H PRN PO PAIN LEVEL 1-3 OR FEVER; Start at 00:00 Enoxaparin Sodium (Lovenox) 40 mg DAILY SC Last administered on 09/27/16 08:45 ; Admin Dose 40 MG; Start 09/27/16 at 09:00 Non-Formulary Medication 1 ea HS VAG Last administered on 09/27/16 03:13; Admin Dose 1 EA; Start 09/27/16 at 03:00; Stop 09/28/16 at 21:01 Morphine Sulfate (morphine) 2 mg Q4H PRN IV PAIN; Start 09/27/16 at 06:30 Tamsulosin HCl 0.4 mg 0.4 mg HS PO ; Start 09/27/16 at 21:00 Ceftriaxone Sodium (Rocephin) 50 ml @ 100 mls/hr Q24H IVPB ; Start 09/27/16 at 23:00; Stop 09/30/16 at 08:00 DIGNA MERCHANT MD Sep 27, 2016 17:30
[2016-09-27] MEDS: LORAZEPAM 2 MG INJ IV PRN (20:14)
[2016-09-27] MEDS ORDERED: TAMSULOSIN (SR) 0.4 MG CAP PO SCH (21:00)
[2016-09-27] MEDS: morphine 2 MG INJ IV PRN (21:39)
[2016-09-27] MEDS: ONDANSETRON 4 MG INJ IV PRN (21:49)
[2016-09-27] MEDS ORDERED: CEFTRIAXONE 1 GM/50 ML (PMX) 50 ML IVPB SCH (23:00)
[2016-09-28] MEDS: morphine 2 MG INJ IV PRN ×3 (04:13→19:49)
[2016-09-28 07:43] VITALS: BP 103/50; RESP 18
[2016-09-28] MEDS: ENOXAPARIN 40 MG/0.4 ML SYG SC SCH (09:13)
[2016-09-28] MEDS: LORAZEPAM 2 MG INJ IV PRN (12:00)
--- NOTE | 2016-09-28 13:06 | CONS ---
Date/Time of Note Date/Time of Note DATE: 09/28/16 TIME: 13:03 Assessment/Plan Assessment/Plan Chief Complaint/Hosp Course Impression: 1 abdominal pain: Small bowel enteritis versus possible neoplasm versus foreign body. U/A showed UTI which can also contribute to abdominal pain. EGD and colonoscopy unrevealing. 2. CAT scan shows Long segment narrowing of the distal transverse colon with a rather abrupt caliber change noted with the more proximal mid transverse colon. colonoscopy showed edematous colon s/p biopsy. 3. Nephrolithiasis: can also contribute to her abdominal pain 4. diarrhea 5. family h/o colon cancer Recommendations: 1. f/u biopsy results 2. f/u stool studies to r/o infectious etiology of her enteritis and colitis 3. ok to dc from GI perspective to f/u biopsy if ok with primary and other consultants Problems: Consultation Date/Type/Reason Admit Date/Time Sep 26, 2016 at 23:08 Initial Consult Date 09/27/16 Type of Consultation: GI 24 HR Interval Summary Free Text/Dictation s/p EGD and colonoscopy, I answered her questions on the endoscopic findings. Exam/Review of Systems Vital Signs Vitals Vital Signs Date Time Temp Pulse Resp B/P Pulse Ox O2 Delivery O2 Flow Rate FiO2 09/28/16 07:43 97.6 90 18 103/50 96 09/27/16 18:20 Room Air Intake and Output 09/27/16 09/27/16 09/28/16 15:00 23:00 07:00 Intake Total 850 ml 700 ml Balance 850 ml 700 ml Exam Constitutional: alert, oriented, well developed Psych: nl mood/affect, no complaints Head: atraumatic, normocephalic Eyes: EOMI, nl conjunctiva, nl lids, nl sclera ENMT: mucosa pink and moist, nl external ears & nose, nl lips & teeth, nl nasal mucosa & septum Neck: non-tender, supple Respiratory: clear to auscultation, normal air movement Cardiovascular: nl pulses, regular rate and rhythm Gastrointestinal: bowel sounds, soft, tender (diffusely, no R/G) Results Result Diagram: 09/27/1651709/27/16517 Medications Medications Current Medications Sodium Chloride (NS) 1,000 ml @ 80 mls/hr [id number] IV Last administered on 09/27t 18:38; Admin Dose 80 MLS/HR; Start 09/26/16 at 23:56 Ondansetron HCl (Zofran Inj) 4 mg Q6H PRN IV NAUSEA AND/OR VOMITING Last administered on 09/27/16 21:49; Admin Dose 4 MG; Start 09/27/16 at 00:00 Acetaminophen (Tylenol Tab) 650 mg Q6H PRN PO PAIN LEVEL 1-3 OR FEVER; Start at 00:00 Enoxaparin Sodium (Lovenox) 40 mg DAILY SC Last administered on 09/28/16 09:13 ; Admin Dose 40 MG; Start 09/27/16 at 09:00 Non-Formulary Medication 1 ea HS VAG Last administered on 09/27/16 22:28; Admin Dose 1 EA; Start 09/27/16 at 03:00; Stop 09/28/16 at 21:01 Morphine Sulfate (morphine) 2 mg Q4H PRN IV PAIN Last administered on 09:17; Admin Dose 2 MG; Start 09/27/16 at 06:30 Tamsulosin HCl 0.4 mg 0.4 mg HS PO Last administered on 09/27/16 21:39; Admin Dose 0.4 MG; Start 09/27/16 at 21:00 Ceftriaxone Sodium (Rocephin) 50 ml @ 100 mls/hr Q24H IVPB Last administered on 09/27/16 22:27; Admin Dose 100 MLS/HR; Start 09/27/16 at 23:00; Stop at 08:00 Lorazepam (Ativan) 1 mg Q6H PRN IV AGITATION Last administered on 09/28/16 12: 00; Admin Dose 1 MG; Start 09/27/16 at 20:00 Sertraline HCl (Zoloft) 25 mg DAILY PO ; Start 09/28/16 at 13:30; Status ALCIRA GODWIN MD Sep 28, 2016 13:05
--- NOTE | 2016-09-28 13:08 | PN ---
Date/Time of Note Date/Time of Note DATE: 09/28/16 TIME: 13:03 Assessment/Plan VTE Prophylaxis VTE Prophylaxis Intervention: SCD's Lines/Catheters IV Catheter Type (from Nrsg): Peripheral IV Assessment/Plan Assessment/Plan 35 yo F admitted for abd pain, also qutie anxious. #anxiety: Pt's responses to the GAD7 are consistent with a diagnosis of general anxiety disorder. Pt without any reported history of liam or manic symptoms. -start SSRI, sertraline 25 mg daily x 7 daily, should then be uptitrated to 50 mg -long discussion with patient about KRISTAN, handout given for her to review -PO ativan PRN while SSRI levels build up #abd pain: etio unclear. colon biopsy results unrevealing gen surg also following, await additional recs dispo: possibly in AM as biopsies unremarkable. Await further gen surg input Subjective 24 Hr Interval Summary Free Text/Dictation Pt exceedingly anxious this morning. Of note, pt states that she has been anxious and irritable for some time. Reports poor sleep, constant worrying, poor appetite, that this is negative impacting relationships in her family. Pt denies SI. Denies feeling more self confident than usual, excessive spending , having more energy, pressured speech, racing thoughts, less need for sleep. Exam/Review of Systems Vital Signs Vitals Vital Signs Date Time Temp Pulse Resp B/P Pulse Ox O2 Delivery O2 Flow Rate FiO2 09/28/16 07:43 97.6 90 18 103/50 96 09/27/16 18:20 Room Air Intake and Output 09/27/16 09/27/16 09/28/16 15:00 23:00 07:00 Intake Total 850 ml 700 ml Balance 850 ml 700 ml Exam NAD, tearful at times no mrg lungs clear abd soft no rashes GI biopsy results nl Psychometric testing: KRISTAN 7: 21 points Results Result Diagram: 09/27/16 0518 09/27/16 0518 Medications Medications Current Medications Sodium Chloride (NS) 1,000 ml @ 80 mls/hr [id number] IV Last administered on 09/27t 18:38; Admin Dose 80 MLS/HR; Start 09/26/16 at 23:56 Ondansetron HCl (Zofran Inj) 4 mg Q6H PRN IV NAUSEA AND/OR VOMITING Last administered on 09/27/16 21:49; Admin Dose 4 MG; Start 09/27/16 at 00:00 Acetaminophen (Tylenol Tab) 650 mg Q6H PRN PO PAIN LEVEL 1-3 OR FEVER; Start at 00:00 Enoxaparin Sodium (Lovenox) 40 mg DAILY SC Last administered on 09/28/16 09:13 ; Admin Dose 40 MG; Start 09/27/16 at 09:00 Non-Formulary Medication 1 ea HS VAG Last administered on 09/27/16 22:28; Admin Dose 1 EA; Start 09/27/16 at 03:00; Stop 09/28/16 at 21:01 Morphine Sulfate (morphine) 2 mg Q4H PRN IV PAIN Last administered on 09:17; Admin Dose 2 MG; Start 09/27/16 at 06:30 Tamsulosin HCl 0.4 mg 0.4 mg HS PO Last administered on 09/27/16 21:39; Admin Dose 0.4 MG; Start 09/27/16 at 21:00 Ceftriaxone Sodium (Rocephin) 50 ml @ 100 mls/hr Q24H IVPB Last administered on 09/27/16 22:27; Admin Dose 100 MLS/HR; Start 09/27/16 at 23:00; Stop at 08:00 Lorazepam (Ativan) 1 mg Q6H PRN IV AGITATION Last administered on 09/28/16 12: 00; Admin Dose 1 MG; Start 09/27/16 at 20:00 Sertraline HCl (Zoloft) 25 mg DAILY PO ; Start 09/28/16 at 13:30; Status DIGNA PLASENCIA MD Sep 28, 2016 13:08
[2016-09-28] MEDS: SERTRALINE 50 MG TAB PO SCH (14:22)
--- NOTE | 2016-09-28 18:06 | PN ---
Date/Time of Note Date/Time of Note DATE: 09/28/16 TIME: 18:00 Assessment/Plan Lines/Catheters IV Catheter Type (from Nrs): Peripheral IV Assessment/Plan Chief Complaint/Hosp Course 1. Abdominal pain: DDx enterocolitis vs uti vs other. EGD/Colonoscopy noted. -gi f/u -ivf -? abx -await path -medical optimization 2. Abdominal wall foreign body ? portion of lap band -f/u with primary surgeon 3. Nephrolithiasis: nonobstructing; no pain -monitor for symptoms 4. Urinary tract infection: -abx 5. Perineal/Vaginal itching: likely 2/2 uti vs. fungal -started on monostat -as above 6. Anemia: -monitor -transfuse as needed Thank you, Problems: Subjective 24 Hr Interval Summary No f/c. No n/v. No cp/sob. No cough. No stewart/dizzy/visual or neuro changes. No dysuria. Pain improving. Loose stools. EGD/Colonoscopy noted. Exam/Review of Systems Vital Signs Vitals Vital Signs Date Time Temp Pulse Resp B/P Pulse Ox O2 Delivery O2 Flow Rate FiO2 09/28/16 07:43 97.6 90 18 103/50 96 09/27/16 18:20 Room Air Intake and Output 09/27/16 09/27/16 09/28/16 15:00 23:00 07:00 Intake Total 850 ml 700 ml Balance 850 ml 700 ml Exam Free Text/Dictation Constitutional: alert, oriented, well developed Psych: anxiety Head: atraumatic, normocephalic Eyes: nl lids, nl sclera ENMT: mucosa pink and moist Neck: non-tender, supple Respiratory: clear to auscultation, normal air movement Cardiovascular: nl pulses, regular rate and rhythm, No edema Gastrointestinal: bowel sounds, non-tender, soft, surgical scars, tender, No distended, No rebound or guarding, No palpable lesions Musculoskeletal: nl extremities to inspection, No swelling Extremities: normal pulses, No edema Neurological: nl mental status, nl speech, nl strength Skin: nl turgor Results Free Text/Dictation EGD/Colonoscopy: Findings: 1. gastropathy 2. pancreatic rest 3. edematous colon Procedure Description After informed consent and timeout, patient was sedated. After adequate sedation , I inserted an adult EGD scope from the mouth and advanced to 2nd portion of duodenum. Retroflexion was performed in the body of stomach revealing cardia and fundus. Random stomach biopsies were obtained to r/o H. pylori. Biopsies of the presumed pancreatic rest in antrum of stomach also obtained. I then withdraw the EGD scope to GEJ and Z line at 40 cm, no hiatal hernia. Air then suctioned out as I completely removed the scope. Patient then turned around for colonoscopy. Rectal exam normal with normal tone. I then inserted an colonoscope from the rectum and advanced to cecum reached at 80 cm as evidenced by appendiceal orifice and IC valve. The whole colon appeared edematous particularly at transverse colon. Random colonic biopsies were obtained to r/o microscopic colitis. Retroflexion performed in rectum showing small internal hemorrhoids. Result Diagram: 09/27/16 0518 09/27/16 0518 LILI MACDONALD MD Sep 28, 2016 18:06
[2016-09-28 20:00] VITALS: BP 111/56; RESP 18
[2016-09-28] MEDS: MICONAZOLE VAG SCH (21:27)
[2016-09-28] MEDS: LORAZEPAM 1 MG TAB PO PRN (22:33)
[2016-09-29 07:31] VITALS: BP 104/53; RESP 18
[2016-09-29] MEDS: morphine 2 MG INJ IV PRN (07:58)
[2016-09-29] MEDS: ONDANSETRON 4 MG INJ IV PRN (08:01)
[2016-09-29] MEDS: SERTRALINE 50 MG TAB PO SCH (08:01)
[2016-09-29] MEDS: ENOXAPARIN 40 MG/0.4 ML SYG SC SCH (08:10)
--- NOTE | 2016-09-29 09:53 | PN ---
Date/Time of Note Date/Time of Note DATE: 09/29/16 TIME: 09:31 Assessment/Plan Lines/Catheters IV Catheter Type (from Nrs): Peripheral IV Assessment/Plan Chief Complaint/Hosp Course 1. Abdominal pain: DDx enterocolitis vs uti vs other. EGD/Colonoscopy noted; improved -gi f/u outpatient -await path -medical optimization 2. Abdominal wall foreign body ? portion of lap band; asymptomatic from foreign body -f/u with primary surgeon; no surgical intervention needed at this time 3. Nephrolithiasis: nonobstructing; no pain -monitor for symptoms 4. Urinary tract infection: -abx 5. Perineal/Vaginal itching: likely 2/2 uti vs. fungal -started on monostat -as above 6. Anemia: -monitor -transfuse as needed Patient seen and examined in collaboration with Dr. Tanmay Louis Problems: Subjective 24 Hr Interval Summary Patient feels better, minimal abdominal pain, relieved by pain medications. No n /v/d, + flatus. No cp/fevers, f/c. No cough. No stewart/dizzy/visual or neuro changes. No dysuria. Exam/Review of Systems Vital Signs Vitals Vital Signs Date Time Temp Pulse Resp B/P Pulse Ox O2 Delivery O2 Flow Rate FiO2 09/29/16 07:31 98.6 65 18 104/53 94 09/27/16 18:20 Room Air Intake and Output 09/28/16 09/28/16 09/29/16 15:00 23:00 07:00 Intake Total 700 ml 500 ml Balance 700 ml 500 ml Exam Free Text/Dictation Constitutional: alert, oriented, well developed Psych: anxiety Head: atraumatic, normocephalic Eyes: nl lids, nl sclera ENMT: mucosa pink and moist Neck: non-tender, supple Respiratory: clear to auscultation, normal air movement Cardiovascular: nl pulses, regular rate and rhythm, No edema Gastrointestinal: bowel sounds, non-tender, soft, surgical scars, tender, No distended, No rebound or guarding, No palpable lesions Musculoskeletal: nl extremities to inspection, No swelling Extremities: normal pulses, No edema Neurological: nl mental status, nl speech, nl strength Results Result Diagram: 09/27/16 0518 09/27/16 0518 DAMIAN GARRETT NP Sep 29, 2016 09:47
[2016-09-29] MEDS ORDERED: SERT50TA6 PO (10:34)
--- NOTE | 2016-09-29 10:45 | PDOCDIS ---
Discharge Instructions DIAGNOSIS Discharge Diagnosis abdominal pain, anxiety CONDITION Patient Condition: Good HOME CARE INSTRUCTIONS: Diet Instructions: Regular ACTIVITY: Activity Restrictions: No Restrictions FOLLOW UP/APPOINTMENTS Follow-up Plan Follow up with your regular doctor within 2 weeks to talk about your anxiety, continuing the Zoloft/sertraline and possibly getting set up with a therapist to help with your anxiety Follow up with the physician who did you gastric sleeve Follow up with the calender wind up helper within 2-[address] Temo Live Office Address [address] [place] [address] Office OTHER ORDERS: Other Orders: If you have thoughts of harming yourself or anyone else, call 911 immediately If while on the Zoloft you find yourself experiencing elevated mood, inflated self-esteem, decreased need for sleep, racing thoughts, difficulty maintaining attention, increase in goal-directed activity, and excessive involvement in pleasurable activities please call 911 immediately as these can be symptoms of liam DIGNA MERCHANT MD Sep 29, 2016 10:45
[2016-09-29] MEDS: LORAZEPAM 1 MG TAB PO PRN (10:48)
--- NOTE | 2016-09-29 10:51 | DS ---
Date/Time of Note Date/Time of Note DATE: 09/29/16 TIME: 10:49 Discharge Summary Admission/Discharge Info Admit Date/Time Sep 26, 2016 at 23:08 Discharge Date/Time Discharge Diagnosis abdominal pain, anxiety Patient Condition: Good Consults general surgery, GI Procedures 6.28 CT A/P IMPRESSION: 1. Cholelithiasis. 2. There is a 2 cm by 5.5 mm tubular shape foreign body fragment ventral to the medial aspect of the left rectus abdominus muscle. There is a 2 mm calcification medial to the foreign body fragment. 3. Status post gastric bypass surgery. 4. Mucosal thickening of small bowel loops in the left upper abdomen suspicious for an acute small bowel enteritis. 5. There are small mesenteric lymph nodes. 6. 4 mm nonobstructive nephrolith midpole left kidney. 7. There is a long segment narrowing of the distal transverse colon with a rather abrupt caliber change noted with the more proximal mid transverse colon. Although this may be the result of incomplete distension, infiltrative neoplasm is not entirely excluded. A barium enema or colonoscopy is recommended for evaluating this area. 8. Diverticula in the proximal sigmoid colon. Diverticulum in the distal transverse colon. 9. Leiomyomata of the retroverted uterus. Large follicle or cyst in the right ovary which would be better evaluated with pelvic sonography if clinically indicated. 6.29 Pelvic US IMPRESSION: 1. Small Nabothian cysts in the cervix. 2. Benign 2.0 x 1.5 cm right ovarian cyst. No further evaluation required. 3. Small amount of physiologic free fluid in the cul-de-sac. 4. Otherwise unremarkable study. CScope/EGD 6.29 Preoperative Diagnosis diarrhea, anemia, CT showing enteritis and colitis Postoperative Diagnosis 1. edematous colon, particularly in transverse colon 2. gastropathy 3. pancreatic rest Operation Performed 1. EGD with biopsies 2. colonoscopy with biopsies Indications diarrhea, anemia, CT showing enteritis and colitis Operative\Procedure Findings 1. gastropathy 2. pancreatic rest 3. edematous colon Procedure Description After informed consent and timeout, patient was sedated. After adequate sedation , I inserted an adult EGD scope from the mouth and advanced to 2nd portion of duodenum. Retroflexion was performed in the body of stomach revealing cardia and fundus. Random stomach biopsies were obtained to r/o H. pylori. Biopsies of the presumed pancreatic rest in antrum of stomach also obtained. I then withdraw the EGD scope to GEJ and Z line at 40 cm, no hiatal hernia. Air then suctioned out as I completely removed the scope. Patient then turned around for colonoscopy. Rectal exam normal with normal tone. I then inserted an colonoscope from the rectum and advanced to cecum reached at 80 cm as evidenced by appendiceal orifice and IC valve. The whole colon appeared edematous particularly at transverse colon. Random colonic biopsies were obtained to r/o microscopic colitis. Retroflexion performed in rectum showing small internal hemorrhoids. BIOPSY RESULTS A-Gastric biopsy B-Random colon biopsy CLINICAL: Abdominal pain; diarrhea; rule out H. pylori/microscopic colitis GROSS EXAMINATION: A-Received in formalin are five fragments of stevenson-kinney soft tissue that measure 0.1 x 0.1 x 0.1 cm up to 0.6 x 0.2 x 0.1 cm. Totally submitted in cassette A. B-Received in formalin are ten fragments of stevenson-kinney soft tissue that measure 0.2 x 0.1 x 0.1 up to 0.5 x 0.2 x 0.1 cm. Totally submitted in cassette B. MICROSCOPIC DIAGNOSIS: A-Gastric biopsy: -- Antral mucosa showing focal reactive change of foveolar epithelium, histologically nonspecific. -- Normal body mucosa. -- No Helicobacter organisms are identified in a Giemsa stain (positive control concurrently reviewed). -- There is no evidence of malignancy. B-Random colon biopsy: -- Normal colon mucosa. -- There is no evidence of colitis or malignancy. Hx of Present Illness chief complaint: chronic diarrhea, abdominal pain This 35-year-old female presents with 3 days of diarrhea and nausea and mid abdominal pain that is crampy and somewhat migratory. She denies fevers and chills. She also states that she feels anxious. One the reasons for anxiety is that she has a cousin and aunt who had colon cancer at a young age. She had initially set up follow-up for a colonoscopy but had not followed through. She states that her relatives had the same symptoms of diarrhea. She states that she had diarrhea for approximately 3 days and it did stop for some time in between but she has been dealing with a chronically for the last 4-6 months. Denies any bright red blood per rectum. allergy: hydrocodone meds: see [facility] Hospital Course 1. Abdominal pain: DDx enterocolitis vs uti vs other. EGD/Colonoscopy noted; improved -gi f/u outpatient -await path -medical optimization 2. Abdominal wall foreign body ? portion of lap band; asymptomatic from foreign body -f/u with primary surgeon; no surgical intervention needed at this time 3. Nephrolithiasis: nonobstructing; no pain -monitor for symptoms 4. Urinary tract infection: -abx 5. Perineal/Vaginal itching: likely 2/2 uti vs. fungal -started on monostat -as above 6. Anemia: -monitor -transfuse as needed Patient seen and examined in collaboration with Dr. Tanmay [facility] Active Scripts Sertraline Hcl* (Sertraline Hcl*) 50 Mg Tablet, 50 MG PO DAILY for 14 Days, #14 TAB Prov:DIGNA MERCHANT MD 09/29/16 Sertraline Hcl* (Sertraline Hcl*) 50 Mg Tablet, 25 MG PO DAILY for 6 Days, #6 TAB continue taking this lower dose of Zoloft for the next 6 days. When you finish these pills, switch to the higher dose Prov:DIGNA MERCHANT MD 09/29/16 Discontinued Scripts Ibuprofen* (Motrin*) 600 Mg Tab, 600 MG PO TID for PAIN, #30 TAB Prov:ALCIRA BLEVINS MD 06/19/15 Follow-up Plan PCP within 2 weeks GI within 2-4 weeks f/u with surgeon who did her gastric sleeve Primary Care Provider Humphrey Arevalo Time spent on discharge: > 30 minutes DIGNA MERCHANT MD Sep 29, 2016 10:51
--- NOTE | 2016-09-29 11:01 | DS ---
Date/Time of Note Date/Time of Note DATE: 09/29/16 TIME: 10:57 Discharge Summary Admission/Discharge Info Admit Date/Time Sep 26, 2016 at 23:08 Discharge Date/Time Discharge Diagnosis abdominal pain, anxiety Patient Condition: Good Consults GI, general surgery Procedures 6.28 CT A/P IMPRESSION: 1. Cholelithiasis. 2. There is a 2 cm by 5.5 mm tubular shape foreign body fragment ventral to the medial aspect of the left rectus abdominus muscle. There is a 2 mm calcification medial to the foreign body fragment. 3. Status post gastric bypass surgery. 4. Mucosal thickening of small bowel loops in the left upper abdomen suspicious for an acute small bowel enteritis. 5. There are small mesenteric lymph nodes. 6. 4 mm nonobstructive nephrolith midpole left kidney. 7. There is a long segment narrowing of the distal transverse colon with a rather abrupt caliber change noted with the more proximal mid transverse colon. Although this may be the result of incomplete distension, infiltrative neoplasm is not entirely excluded. A barium enema or colonoscopy is recommended for evaluating this area. 8. Diverticula in the proximal sigmoid colon. Diverticulum in the distal transverse colon. 9. Leiomyomata of the retroverted uterus. Large follicle or cyst in the right ovary which would be better evaluated with pelvic sonography if clinically indicated. 6.29 Pelvic US IMPRESSION: 1. Small Nabothian cysts in the cervix. 2. Benign 2.0 x 1.5 cm right ovarian cyst. No further evaluation required. 3. Small amount of physiologic free fluid in the cul-de-sac. 4. Otherwise unremarkable study. CScope/EGD 6.29 Preoperative Diagnosis diarrhea, anemia, CT showing enteritis and colitis Postoperative Diagnosis 1. edematous colon, particularly in transverse colon 2. gastropathy 3. pancreatic rest Operation Performed 1. EGD with biopsies 2. colonoscopy with biopsies Indications diarrhea, anemia, CT showing enteritis and colitis Operative\Procedure Findings 1. gastropathy 2. pancreatic rest 3. edematous colon Procedure Description After informed consent and timeout, patient was sedated. After adequate sedation , I inserted an adult EGD scope from the mouth and advanced to 2nd portion of duodenum. Retroflexion was performed in the body of stomach revealing cardia and fundus. Random stomach biopsies were obtained to r/o H. pylori. Biopsies of the presumed pancreatic rest in antrum of stomach also obtained. I then withdraw the EGD scope to GEJ and Z line at 40 cm, no hiatal hernia. Air then suctioned out as I completely removed the scope. Patient then turned around for colonoscopy. Rectal exam normal with normal tone. I then inserted an colonoscope from the rectum and advanced to cecum reached at 80 cm as evidenced by appendiceal orifice and IC valve. The whole colon appeared edematous particularly at transverse colon. Random colonic biopsies were obtained to r/o microscopic colitis. Retroflexion performed in rectum showing small internal hemorrhoids. BIOPSY RESULTS A-Gastric biopsy B-Random colon biopsy CLINICAL: Abdominal pain; diarrhea; rule out H. pylori/microscopic colitis GROSS EXAMINATION: A-Received in formalin are five fragments of stevenson-kinney soft tissue that measure 0.1 x 0.1 x 0.1 cm up to 0.6 x 0.2 x 0.1 cm. Totally submitted in cassette A. B-Received in formalin are ten fragments of stevenson-kinney soft tissue that measure 0.2 x 0.1 x 0.1 up to 0.5 x 0.2 x 0.1 cm. Totally submitted in cassette B. MICROSCOPIC DIAGNOSIS: A-Gastric biopsy: -- Antral mucosa showing focal reactive change of foveolar epithelium, histologically nonspecific. -- Normal body mucosa. -- No Helicobacter organisms are identified in a Giemsa stain (positive control concurrently reviewed). -- There is no evidence of malignancy. B-Random colon biopsy: -- Normal colon mucosa. -- There is no evidence of colitis or malignancy. Hx of Present Illness chief complaint: chronic diarrhea, abdominal pain This 35-year-old female presents with 3 days of diarrhea and nausea and mid abdominal pain that is crampy and somewhat migratory. She denies fevers and chills. She also states that she feels anxious. One the reasons for anxiety is that she has a cousin and aunt who had colon cancer at a young age. She had initially set up follow-up for a colonoscopy but had not followed through. She states that her relatives had the same symptoms of diarrhea. She states that she had diarrhea for approximately 3 days and it did stop for some time in between but she has been dealing with a chronically for the last 4-6 months. Denies any bright red blood per rectum. allergy: hydrocodone meds: see [facility] Hospital Course Pt seen by GI and general surgery. Endoscopy results nonspecific as above. General surgery advised pt to f/u with provider who did her weight loss surgery regarding ?foreign body on imaging. No foreign body seen on endoscopy. Of note, patient with significant generalized anxiety during her stay. GAD7 score was 21/21. She denies any previous symptoms of liam (less need for sleep , racing thoughts, pressured speech, excessive spending, disinhibitor or grandiosity), therefore she was started on low dose Zoloft, to be uptitrated after 7 days of low dose therapy. Pt advised to f/u with PCP for additional anxiety management. Home Meds Active Scripts Sertraline Hcl* (Sertraline Hcl*) 50 Mg Tablet, 50 MG PO DAILY for 14 Days, #14 TAB Prov:DIGNA MERCHANT MD 09/29/16 Sertraline Hcl* (Sertraline Hcl*) 50 Mg Tablet, 25 MG PO DAILY for 6 Days, #6 TAB continue taking this lower dose of Zoloft for the next 6 days. When you finish these pills, switch to the higher dose Prov:DIGNA MERCHANT MD 09/29/16 Discontinued Scripts Ibuprofen* (Motrin*) 600 Mg Tab, 600 MG PO TID for PAIN, #30 TAB Prov:ALCIRA BLEVINS MD 06/19/15 Primary Care Provider DIGNA Robert MD Sep 29, 2016 11:01
--- NOTE | 2016-09-29 18:11 | CONS ---
Date/Time of Note Date/Time of Note DATE: 09/29/16 TIME: 18:09 Assessment/Plan Assessment/Plan Chief Complaint/Hosp Course Impression: 1 abdominal pain: Small bowel enteritis versus possible neoplasm versus foreign body. U/A showed UTI which can also contribute to abdominal pain. EGD and colonoscopy unrevealing. 2. CAT scan shows Long segment narrowing of the distal transverse colon with a rather abrupt caliber change noted with the more proximal mid transverse colon. colonoscopy showed edematous colon s/p biopsy. 3. Nephrolithiasis: can also contribute to her abdominal pain 4. diarrhea 5. family h/o colon cancer Recommendations: 1. f/u biopsy results 2. f/u stool studies to r/o infectious etiology of her enteritis and colitis 3. ok to dc from GI perspective to f/u biopsy if ok with primary and other consultants. 4. if pt dc, can f/u with Dr. Ricketts Problems: Consultation Date/Type/Reason Admit Date/Time Sep 26, 2016 at 23:08 Initial Consult Date 09/27/16 Type of Consultation: GI 24 HR Interval Summary Free Text/Dictation mild abdominal pain, improved, no n/v Constitutional: improved Exam/Review of Systems Vital Signs Vitals Vital Signs Date Time Temp Pulse Resp B/P Pulse Ox O2 Delivery O2 Flow Rate FiO2 09/29/16 07:31 98.6 65 18 104/53 94 09/27/16 18:20 Room Air Intake and Output 09/28/16 09/28/16 09/29/16 15:00 23:00 07:00 Intake Total 700 ml 500 ml Balance 700 ml 500 ml Exam Constitutional: alert, oriented, well developed Psych: nl mood/affect, no complaints Head: atraumatic, normocephalic Eyes: EOMI, nl conjunctiva, nl lids ENMT: nl external ears & nose, nl lips & teeth, nl nasal mucosa & septum Neck: non-tender, supple Respiratory: clear to auscultation, normal air movement Cardiovascular: nl pulses, regular rate and rhythm Gastrointestinal: bowel sounds, soft, tender (difffusely, improved from yesterday, no R/G) Results Result Diagram: 09/27/16 0518 09/27/16 0518 ALCIRA QUIÑONES MD Sep 29, 2016 18:10
== END 2016-09-29 12:47 | disposition home or self-care (01) | DRG 392 ==
LOC: FTE 15:46 → MS2 23:08
PROVIDERS: ADMIT Family Medicine; ATTEND Family Medicine
PROC: 0DB78ZX Excision of Stomach, Pylorus, Via Natural or Artificial Opening Endoscopic, Diagnostic (ICD-10-PCS; principal; 2016-09-27 18:30)
PROC: 0DBL8ZX Excision of Transverse Colon, Via Natural or Artificial Opening Endoscopic, Diagnostic (ICD-10-PCS; 2016-09-27 18:30)
DX: R10.815 Periumbilic abdominal tenderness (principal); N39.0 Urinary tract infection, site not specified; K80.20 Calculus of gallbladder without cholecystitis without obstruction; N20.0 Calculus of kidney; L29.2 Pruritus vulvae; D25.9 Leiomyoma of uterus, unspecified; F17.210 Nicotine dependence, cigarettes, uncomplicated; D64.9 Anemia, unspecified; K31.9 Disease of stomach and duodenum, unspecified; K64.8 Other hemorrhoids; F41.9 Anxiety disorder, unspecified; R19.7 Diarrhea, unspecified; Z98.84 Bariatric surgery status; Z80.0 Family history of malignant neoplasm of digestive organs
CPT/HCPCS: 36415; 74176; 76830; 76856; 80053; 81001; 81003; 82378; 83690; 83735; 84443; 85025; 85610; 86304; 86592; 86674; 87045; 87070; 87075; 87086; 87177; 87205; 87536; 88305; 88312; 96365; 96372; 96375; J0696; J1650; J2060; J2270; J2405; J2765; J7030; J7040

== ENCOUNTER 2018-01-03 13:21 | Emergency (ER) | END 2018-01-03 15:52 | disposition home or self-care (01) ==

== ENCOUNTER 2018-01-17 03:40 | Emergency (ER) | END 2018-01-17 05:39 | disposition home or self-care (01) ==

== ENCOUNTER 2018-05-04 22:02 | Emergency (ER) | payer BC ==
[~2018-05-04] VITALS: Ht 165.1 cm; Wt 74.4 kg
[~2018-05-04 22:02] MED LIST changes: +AMOX500C2 PO; +FLUC150T PO; -IBUP-1542 PO; +IBUP800T48 PO; +NAPR-985 PO; +SERT50TA6 PO
[2018-05-04 22:12] VITALS: Ht 165.1 cm; Wt 74.4 kg
[2018-05-05] MEDS ORDERED: IBUPROFEN 600 MG TAB PO ONE (01:00)
--- NOTE | 2018-05-05 01:20 | ERD ---
ER Documentation Chief Complaint Chief Complaint achy throat,neck pains,vag bleed,back pains x 1 week; hx cervical cysts HPI 37-year-old female complaining of pelvic pain times 2 weeks. Pain is constant. Patient reports brown colored discharge that is getting progressively heavy over time. She notes reddish and pinkish colored discharge today. Patient also reports urinary frequency and urgency for last 2 weeks. Denies vaginal itching, burning, or pain. Denies dysuria. Denies fever or chills. LMP 04/11/2018. Patient is sexually active, with 2 partners in the last 12-month. ROS All systems reviewed and are negative except as per history of present illness. Medications Home Meds Active Scripts Ibuprofen* (Motrin*) 600 Mg Tab, 600 MG PO Q6H PRN for PAIN AND OR ELEVATED TEMP, #30 TAB Prov:ALEX MARINELLI. TRIAGE LICENSED PRACTICAL NURSE 05/05/18 Fluconazole* (Diflucan*) 150 Mg Tablet, 150 MG PO ONCE, #1 TAB Prov:SHER,SHAE 01/17/18 Ibuprofen* (Motrin*) 800 Mg Tab, 800 MG PO Q6, #30 TAB Prov:SHER,SHAE 01/17/18 Amoxicillin* (Amoxicillin*) 500 Mg Cap, 500 MG PO QID for 10 Days, #40 CAP 0 Refills Prov:SHER,SHAE 01/17/18 Naproxen* (Naprosyn*) 500 Mg Tablet, 500 MG PO BID PRN for PAIN AND/OR INFLAMMATION, #30 TAB Prov:KISHAN LITTLE PA-C 01/03/18 Sertraline Hcl* (Sertraline Hcl*) 50 Mg Tablet, 50 MG PO DAILY for 14 Days, #14 TAB Prov:DIGNA MERCHANT MD 09/29/16 Sertraline Hcl* (Sertraline Hcl*) 50 Mg Tablet, 25 MG PO DAILY for 6 Days, #6 TAB continue taking this lower dose of Zoloft for the next 6 days. When you finish these pills, switch to the higher dose Prov:DIGNA MERCHANT MD 09/29/16 Discontinued Scripts Doxycycline Hyclate* (Doxycycline Hyclate*) 100 Mg Tablet.dr, 100 MG PO BID for 14 Days, TAB Prov:ALEX MARINELLI. TRIAGE LICENSED PRACTICAL NURSE 05/05/18 Allergies Allergies: Coded Allergies: hydrocodone (Unverified Adverse Reaction, Unknown, 09/26/16) PMhx/Soc History of Surgery: No Anesthesia Reaction: No Hx Neurological Disorder: No Hx Respiratory Disorders: No Hx Cardiac Disorders: No Hx Psychiatric Problems: No Hx Miscellaneous Medical Probl: Yes (CERVICAL CANCER) Hx Alcohol Use: No Hx Substance Use: No Hx Tobacco Use: No Smoking Status: Never smoker Physical Exam Vitals Vital Signs Date Temp Pulse Resp B/P (MAP) Pulse Ox O2 O2 Flow FiO2 Time Delivery Rate 05/05/18 98.0 66 16 123/71 100 Room Air 03:50 (88) 05/04/18 98.0 70 16 121/65 100 22:12 (83) Physical Exam General: Well-developed, well-nourished, conscious and coherent, in no distress Skin: Warm and dry without rash, good texture and turgor Head: Normocephalic without evidence of trauma Nose/Face: Without rhinorrhea Mouth/throat: Mucous membranes are moist. Posterior pharynx clear without erythema or exudates Neck: Supple without meningismus or adenopathy. Carotids are equal. Trachea midline. No bruits or JVD Chest: Normal AP diameter. Good expansion without retractions. Nontender. Lungs are clear to auscultate bilaterally with good tidal volume Heart: Regular rate and rhythm. No murmur, rub, or gallops heard Abdomen: Soft and nontender without masses, guarding, or rebound. Bowel sounds are active. No hepatosplenomegaly Back: Without spinal or CVA tenderness Pelvis: Nontender to palpation and stable to compression : External genitalia without lesions or masses. Light reddish brown discharge noted in this cervical canal. Cervix normal, no cervical motion tenderness noted. Uterus nontender and normal size. No adnexal tenderness or masses noted. Extremities: Full range of motion. Good strength bilaterally. No erythema, ecchymosis, or edema. Peripheral pulses are intact. Sensation intact Neuro: Alert and oriented 4, GCS 15. Results 24 hrs Laboratory Tests Test 05/05/18 00:59 05/05/18 01:01 Bedside Urine pH (LAB) 6.5 Bedside Urine Protein (LAB) Negative Bedside Urine Glucose (UA) Negative Bedside Urine Ketones (LAB) Negative Bedside Urine Blood Trace-intact Bedside Urine Nitrite (LAB) Negative Bedside Urine Leukocyte Esterase (L Negative POC Beta HCG, Qualitative NEGATIVE Current Medications Medications Dose Sig/Osiris Start Time Status Last (Trade) Ordered Route PRN Stop Time Admin Dose Reason Admin Ibuprofen 600 mg ONCE ONCE 05/05/18 DC 05/05/18 (Motrin) PO 01:00 05/05/18 01:45 01:01 1,000 mg ONCE ONCE 05/05/18 DC 05/05/18 Azithromycin PO 03:30 05/05/18 03:29 (Zithromax) 03:31 Ceftriaxone 1 gm ONCE ONCE 05/05/18 DC 05/05/18 Sodium IM 03:30 05/05/18 03:29 (Rocephin) 03:31 PROCEDURE: US Pelvis. CLINICAL INDICATION: Pelvic pain TECHNIQUE: Multiple sonographic images of the pelvis were obtained utilizing a transabdominal and endovaginal technique. The images were reviewed on a PACS workstation. COMPARISON: US PELVIS 09/27/2016 FINDINGS: The uterus measures 9.4 x 4.4 x 4.4 cm and is unremarkable in appearance. There is a Nabothian cyst noted. The endometrial thickness is within normal limits measuring 0.6 cm. There is an intrauterine device in place. The right ovary measures 3.2 x 1.8 x 2.3 cm. Flow is demonstrated. The left ovary measures 2.7 x 1.6 x 2.2 cm. Flow is demonstrated. There is trace pelvic free fluid. IMPRESSION: No suspicious adnexal lesions identified. Intrauterine device in place. RPTAT: HAP Admit-r Bossman, Physician Date Time Electronically viewed and signed by Admjunior-r Bossman, Physician on 05/05/2018 02:54 AP/ CC: ALEX MARINELLI. TRIAGE LICENSED PRACTICAL NURSE Procedures/MDM Well-appearing 37-year-old female sent to ED for pelvic pain and urinary frequency and urgency. UA is negative for urinary tract infection or hematuria. Wet mount is negative for cells, yeast, or Trichomonas. Low suspicion for bacterial vaginosis or candidiasis. Patient does not have cervical motion tenderness on exam, I doubt pelvic inflammatory disease. Pelvic ultrasound was obtained, which was unremarkable. IUD is noted in the proper position in the ultrasound. It is uncertain the cause of patient's pelvic pain at this time. However, given patient's sexual history, I will treat her preemptively for chlamydia and gonorrhea with azithromycin p.o. and Rocephin IM. Patient's pain resolved after ibuprofen in the ED. Patient appears well, stable for discharge and outpatient management. Medical decision making shared with patient and family. Education provided to patient and family. Patient and family expressed understanding of the plan. Medications on discharge: Ibuprofen. Follow-up: Primary care provider in 2-3 days or return to ED if worse. Disclaimer: Inadvertent spelling and grammatical errors are likely due to EHR/dictation software use and do not reflect on the overall quality of patient care. Also, please note that the electronic time recorded on this note does not necessarily reflect the actual time of the patient encounter. Departure Diagnosis: Primary Impression: Pelvic pain Condition: Stable ALEX MARINELLI NP May 05, 2018 01:20
[2018-05-05] MEDS ORDERED: DOXY100T20 PO (03:19)
[2018-05-05] MEDS ORDERED: IBUP-1542 PO (03:22)
[2018-05-05] MEDS ORDERED: AZITHROMYCIN 250 MG TAB PO ONE (03:30)
[2018-05-05] MEDS ORDERED: CEFTRIAXONE 1 GM INJ IM ONE (03:30)
[2018-05-05 03:50] VITALS: BP 123/71; PULSE 66; RESP 16
== END 2018-05-05 03:50 | disposition home or self-care (01) ==
LOC: FTE 22:02
DX: R10.2 Pelvic and perineal pain (principal); R40.2412 Glasgow coma scale score 13-15, at arrival to emergency department; Z85.41 Personal history of malignant neoplasm of cervix uteri
CPT/HCPCS: 76830; 76856; 81003; 81025; 87210; 87591; J0696; Z7610; 96372